=== PATIENT | male | born 1965 | race Caucasian/White ===

== ENCOUNTER 2020-05-01 13:52 | Outpatient (CLI) | payer BC, SELFPAY ==
--- NOTE | 2020-05-01 13:56 | ECG_ITS ---
Measurements Intervals [place] Rate: 81 P: 56 NC: 167 QRS: -39 QRSD: 107 T: 49 QT: 362 QTc: 421 Interpretive Statements SINUS RHYTHM LEFT AXIS DEVIATION BORDERLINE ECG Electronically Signed On 05-01-2020 16:08:44 CDT by Leif Piedra D.O.
[2020-05-01 14:04] LABS: Hematocrit 42.9 % (40.0-54.0); Hemoglobin 14.9 g/dL (14.0-18.0); Mean Corpuscular HGB Conc 34.7 g/dL (32.0-36.0); Mean Corpuscular Hemoglobin 29.9 pg (27.0-31.0); Mean Corpuscular Volume 86.1 fL (78.0-102.0); Mean Platelet Volume 10.3 fl (8.7-11.0); Platelet Count Result 232 K/mm3 (150-420); Red Blood Count 4.98 M/mm3 (4.70-6.10); Red Cell Distribution Width 11.9 % (11.6-14.4); White Blood Count 9.2 K/mm3 (4.8-10.8)
[2020-05-01 15:08] LABS: Alanine Aminotransferase 35 U/L (16-63); Albumin Level 4.4 g/dL (3.4-5.0); Alkaline Phosphatase 95 U/L (46-116); Anion Gap 10 mmol/L (8-16); Aspartate Amino Transferase 25 U/L (15-37); Bilirubin,Total 0.4 mg/dL (0.00-1.00); Blood Urea Nitrogen 18 mg/dL (7-18); Calcium 8.9 mg/dL (8.5-10.1); Carbon Dioxide 27 mmol/L (21-32); Chloride 102 mmol/L (98-108); Cholesterol 166 mg/dL (0-200); Estimated Glomerular Filt Rate > 60; Glucose 145 mg/dL (70-99); HDL Direct 34 mg/dL (40-60); Osmolality Calculated 292 mOsm/kg (285-295); Potassium 4.2 mmol/L (3.5-5.1); Sodium 139 mmol/L (136-145); Total Protein 7.8 g/dL (6.4-8.2)
[2020-05-01 15:16] LABS: LDL Cholesterol Calculated 10 mg/dL (<130); Triglycerides 611 mg/dL (0-150)
[2020-05-01 15:17] LABS: LDL Cholesterol Direct 70 mg/dL (0-130)
[2020-05-02 18:08] LABS: Hemoglobin A1C 5.7 % (<5.7)
== END 2020-05-01 13:53 | disposition home or self-care (01) ==
PROVIDERS: PCP Family Medicine; Visit Provider Family Medicine
DX: I10 Essential (primary) hypertension (principal)
CPT/HCPCS: 36415; 80053; 80061; 83036; 83721; 85027; 93005

== ENCOUNTER 2020-05-02 16:47 | Outpatient (CLI) | payer BC, SELFPAY | END 2020-05-02 16:48 | disposition home or self-care (01) | LOC: CHSLAB 16:49 | PROVIDERS: PCP Family Medicine; Visit Provider Family Medicine | DX: Z53.8 Procedure and treatment not carried out for other reasons (principal) | CPT/HCPCS: 99199 ==